=== PATIENT | male | born 1955 | race Caucasian/White ===

== ENCOUNTER 2016-09-15 07:10 | Day surgery (SDC) | payer OTHER ==
--- NOTE | ~2016-09-15 | EGD ---
EGD REPORT [facility] [address] [address] NAME: JOSE A BANDA : [birth year] STATUS : REG [facility]#: [id number] AGE: 61 ADM/REG DATE : 09/15/16 MR#: [id number] REPORT SERV DATE: 09/15/16 DICTATED BY: DAMIAN CASTILLO DATE: 09/15/16 REPORT STATUS : Draft TRANSCRIBED BY: [employer] DATE: 09/15/16 [facility] Patient Name: Jose A Banda Date of : 1955 Attending MD: DAMIAN CASTILLO, Procedure Date No Time: 09/15/2016 Procedure: Colonoscopy Indications: Screening for colorectal malignant neoplasm Referring MD: ASHLEIGH RIVAS Medicines: Monitored Anesthesia Care Complications: No immediate complications. Estimated blood loss: None. Procedure: Pre-Anesthesia Assessment: - ASA Grade Assessment: III - A patient with severe systemic disease. After I obtained informed consent, the scope was passed under direct vision. Throughout the procedure, the patient's blood pressure, pulse, and oxygen saturations were monitored continuously. The CF [id number] was introduced through the anus and advanced to the cecum, identified by appendiceal orifice and ileocecal valve. The colonoscopy was performed without difficulty. The patient tolerated the procedure well. The quality of the bowel preparation was adequate. Findings: The perianal and digital rectal examinations were normal. Three sessile polyps were found in the descending colon. The polyps were 4 to 6 mm in size. These polyps were removed with a cold snare. Resection and retrieval were complete. Verification of patient identification for the specimen was done. Estimated blood loss was minimal. A sessile polyp was found in the transverse colon. The polyp was 2 mm in size. The polyp was removed with a cold biopsy forceps. Resection and retrieval were complete. A sessile polyp was found in the sigmoid colon. The polyp was 5 mm in size. The polyp was removed with a cold snare. Resection and retrieval were complete. Verification of patient identification for the specimen was done. Estimated blood loss was minimal. The exam was otherwise without abnormality. Impression: - Three 4 to 6 mm polyps in the descending colon. Resected and retrieved. - One 2 mm polyp in the transverse colon. Resected and retrieved. - One 5 mm polyp in the sigmoid colon. Resected and EGD REPORT [place] [id number] [facility] [place]. [address] NAME: JOSE A BANDA : [birth year] STATUS : REG [facility] PAT#: [id number] AGE: 61 ADM/REG DATE : 09/15/16 MR#: [id number] REPORT SERV DATE: 09/15/16 DICTATED BY: DAMIAN CASTILLO DATE: 09/15/16 REPORT STATUS : Draft TRANSCRIBED BY: [employer] DATE: 09/15/16 retrieved. - The examination was otherwise normal. Recommendation: - Patient has a contact number available for emergencies. The signs and symptoms of potential delayed complications were discussed with the patient. Return to normal activities tomorrow. Written discharge instructions were provided to the patient. - Return to previous diet. - Continue present medications. - Await pathology results. - Repeat colonoscopy for surveillance based on pathology results. Procedure Code(s): --- Professional --- 17355, Colonoscopy, flexible, proximal to splenic flexure; with removal of tumor(s), polyp(s), or other lesion(s) by snare technique 39616, 59, Colonoscopy, flexible, proximal to splenic flexure; with biopsy, single or multiple Diagnosis Code(s): --- Professional --- D12.5, Benign neoplasm of sigmoid colon D12.3, Benign neoplasm of transverse colon D12.4, Benign neoplasm of descending colon Z12.11, Encounter for screening for malignant neoplasm of colon CPT copyright 2013 [employer] [employer]. All rights reserved. The codes documented in this report are preliminary and upon director of securities and real estate review may be revised to meet current compliance requirements. DAMIAN CASTILLO, 09/15/2016 9:05 AM Number of Addenda: 0 Note Initiated On: 09/15/2016 8:22 AM Scope Withdrawal Time 0 hours 25 minutes 57 seconds [address] [id number]
[~2016-09-15 07:10] MED LIST: ASA5GR PO; ASABAYER PO; DIOV80 PO; DIOVAN320 MG PO; GLUCPH PO; LAM250 PO; LEVEMFLXPN SC; LEVEMIR SC; LOP50 PO; NEXIUM20 M1 PO; NITROSTAT0.4 MG SL; NOVOLOG SC; NTG150 SL; OCUVITE PO; PRESERVISION A1 EAC1 PO; TANZEUM SC; TRESIBA FL100 UNIT/1; TRICOR145 PO; VITC500 PO; ZOCOR20 PO
== END 2016-09-15 23:59 | disposition home or self-care (01) ==
LOC: DMU 07:10
PROVIDERS: Internal Medicine Gastroenterology
PROC: 0DBL8ZX Excision of Transverse Colon, Via Natural or Artificial Opening Endoscopic, Diagnostic (ICD-10-PCS; 2016-09-15)
PROC: 0DBM8ZX Excision of Descending Colon, Via Natural or Artificial Opening Endoscopic, Diagnostic (ICD-10-PCS; principal; 2016-09-15 09:00)
PROC: 0DBN8ZX Excision of Sigmoid Colon, Via Natural or Artificial Opening Endoscopic, Diagnostic (ICD-10-PCS; 2016-09-15 09:00)
DX: Z12.11 Encounter for screening for malignant neoplasm of colon (principal); D12.4 Benign neoplasm of descending colon; K63.5 Polyp of colon; I10 Essential (primary) hypertension; E11.9 Type 2 diabetes mellitus without complications; Z79.4 Long term (current) use of insulin; Z95.1 Presence of aortocoronary bypass graft; Z79.82 Long term (current) use of aspirin; Z79.899 Other long term (current) drug therapy; Z98.890 Other specified postprocedural states
CPT/HCPCS: 82962; 88305